=== PATIENT | female | born 1995 | race Caucasian/White ===

== ENCOUNTER → 2021-01-29 10:44 | Outpatient (CLI) | payer OTHER, SELFPAY ==
[2021-01-29 18:22] LABS: Add Manual Diff / Slide Review NO; Basophils Absolute Auto 0 /uL (0-100); Basophils Percent Auto 0.3 % (0-2); Eosinophils Absolute Auto 100 /uL (0-450); Eosinophils Percent Auto 0.8 % (2-4); Hematocrit 39.8 % (36-46); Hemoglobin 13.7 g/dL (12.0-16.0); Lymphocytes Absolute Auto 1900 /uL (1100-4500); Mean Corpuscular HGB Conc 34.5 % (30-36); Mean Corpuscular Volume 89.8 fL (80-100); Monocytes Absolute Auto 300 /uL (0-900); Monocytes Percent Auto 4.3 % (3-14); Neutrophils Absolute Auto 5400 /uL (1500-7000); Neutrophils Percent Auto 70.6 % (50-75); Platelet Count 200 X10^3/uL (150-400); Red Blood Cell Count 4.43 X10^6/uL (4.0-5.2); White Blood Cell Count 7.7 X10^3/uL (4.5-11.0)
[2021-01-29 19:30] LABS: Appearance Urine UA CLEAR; Bilirubin Urine UA NEGATIVE (NEGATIVE); Color Urine UA YELLOW; Glucose Urine UA NEGATIVE (Negative); Ketones Urine UA NEGATIVE (NEGATIVE); Leukocyte Esterase Urine UA NEGATIVE (NEGATIVE); Nitrite Urine UA NEGATIVE (Negative); Occult Blood Urine UA NEGATIVE (Negative); Protein Urine UA NEGATIVE (Negative); Specific Gravity Urine UA 1.015 (1.000-1.035); Urobilinogen Urine UA 0.2 E.U./dL (0.2); pH Urine UA 7.5 (4.5-8.0)
[2021-01-30 06:02] LABS: RPR Screen Non Reactive (Non Reactive)
[2021-01-30 09:43] LABS: Varicella IgG Antibody <135 index (Immune >165)
[2021-01-30 16:40] LABS: Hep C Virus Ab w/Reflex Quant NEGATIVE s/c (NEGATIVE); Hepatitis B Surface Antigen NEGATIVE s/c (NEGATIVE)
[2021-01-30 16:41] LABS: HIV 1 & 2 Ab/Ag 4th Gen Combo NEGATIVE (NEGATIVE); Rubella Antibody IgG 46.3 IU/mL (>15)
== END ==
PROVIDERS: Referring Provider Family Medicine; Visit Provider Family Medicine
DX: Z34.01 Encounter for supervision of normal first pregnancy, first trimester (principal)
CPT/HCPCS: 36415; 80055; 81003; 86787; 86803; 86850; 86900; 86901; 87077; 87086; 87389

== ENCOUNTER → 2021-03-28 15:56 | Outpatient (CLI) | payer OTHER, SELFPAY ==
[2021-04-01 13:16] LABS: AFP, Serum 22.2 ng/mL (.); Calc Gestational Age EDD (.); Estriol, Free 1.62 ng/mL (.); Inhibin A, Dimeric 178.01 pg/mL (.); Inhibin A, MoM 1.02 (.); Maternal Ethnicity Other (.); Maternal Weight 133 lbs (.); Number of Fetuses No (.); OSBR Risk 1 IN 10000 (.); Results Report (.); Test Results *Screen Negative* (.); hCG, MoM 1.23 (.); hCG, Serum 57958 mIU/mL (.)
== END ==
PROVIDERS: Referring Provider Family Medicine; Visit Provider Family Medicine
DX: Z34.90 Encounter for supervision of normal pregnancy, unspecified, unspecified trimester (principal); Z3A.15 15 weeks gestation of pregnancy
CPT/HCPCS: 36415; 82105; 82677; 84702; 86336

== ENCOUNTER → 2021-04-28 15:28 | Outpatient (CLI) | payer OTHER, SELFPAY ==
--- NOTE | 2021-04-28 15:29 | DI.US.S_ITS ---
PROCEDURE: US OB >= 14 WEEKS FETUS INDICATIONS: ANATOMY OUTSIDE/PRIOR DATING DATA: Last menstrual period (LMP): 11/18/2020. LMP-based estimated date of delivery (MICAELA): 08/25/2021. First dating scan (date and location): 04/28/2021. Estimated date of delivery (MICAELA) from first dating scan: 09/06/2021. TECHNIQUE: Real-time scanning was performed of the fetus, with image documentation and biometric measurements. COMPARISON: None. FINDINGS: General: A single living intrauterine gestation is present. Presentation: Breech/oblique Placenta: Placental position is posterior, without previa. Amniotic fluid index: 12.6 cm, normal range is 5-24 cm. heart rate: 152 beats per minute. Maternal cervical canal: 3.7 cm long. Normal lower limit is 2.5 cm. biometrics: Biparietal diameter: 5 cm, 21 weeks, 1 day Head circumference: 18.4 cm, 20 weeks, 6 days Abdominal circumference: 16.4 cm, 21 weeks, 3 days Femur length: 3.7 cm, 21 weeks, 4 days Estimated gestational age from initial scan: not applicable. Composite gestational age from present scan: 21 weeks, 2 days Estimated weight and percentile: 425 g, 2% Measurement variability for biometric dating: +/- 7 days from 14 weeks to 15 weeks 6 days gestation, +/- 10 days from 16 weeks to 21 weeks 6 days gestation, +/- 2 weeks from 22 weeks to 27 weeks 6 days gestation, +/- 3 weeks for 28 weeks gestation or later. weight reference: 4500 g or EFW >90/95% is considered macrosomia or large for gestational age. EFW <10% is small for gestational age. EFW 5% or less is considered intra-uterine growth restriction. Anatomic survey: Neuro: Ventricles are non-dilated at less than 10 mm. Cisterna magna is normal at 3-11 mm. Cerebellum is normal in size and morphology. Nuchal skin fold: Normal at less than 6 mm between 14-21 weeks gestational age. Face: Nose and lips, facial profile are normal. Spine: No evidence for spina bifida. Heart: 4-chambered heart is present, with normal ventricular outflow tracts. Diaphragm: Diaphragm is intact. Stomach: Left-sided stomach is present. Kidneys: No hydronephrosis. Normal is less than 5 mm in 2nd trimester, less than 7 mm in 3rd trimester. Cord: 3-vessel cord has orthotopic insertion. Bladder: Normal in size. Extremities: All 4 extremities identified. Unable to evaluate for gender due to position. IMPRESSION: 1. Single live intrauterine with in oblique/breech presentation. heart rate is 152 beats per minute. Normal amount of amniotic fluid. Estimated gestational age based on current study is 21 weeks, 2 days. Low weight at 2 %. 2. Unable to evaluate for gender due to position. Rest of the anatomic survey is within normal limits. Dictated by: Dayo Browning M.D. on 04/28/2021 at 17:32 Approved by: Dayo Browning M.D. on 04/28/2021 at 17:34
== END ==
PROVIDERS: Referring Provider Family Medicine; Visit Provider Family Medicine
DX: Z36.89 Encounter for other specified antenatal screening (principal); Z3A.21 21 weeks gestation of pregnancy
CPT/HCPCS: 76811

== ENCOUNTER → 2021-06-02 15:39 | Outpatient (CLI) | payer OTHER, SELFPAY ==
--- NOTE | 2021-06-02 15:40 | DI.US.S_ITS ---
PROCEDURE: US OB FOLLOW UP INDICATIONS: FOLLOW UP GENITALIA. LARGE FOR GESTATIONAL AGE. OUTSIDE/PRIOR DATING DATA: Last menstrual period (LMP): 11/18/2020 LMP-based estimated date of delivery (MICAELA): 08/25/2021. First dating scan (date and location): 04/28/2021. Estimated date of delivery (MICAELA) from first dating scan: 09/06/2021. The calculations are made using the ultrasound MICAELA of 09/06/2021. TECHNIQUE: Real-time scanning was performed of the fetus, with image documentation and biometric measurements. Endovaginal scanning: No COMPARISON: [facility], US, OB >= 14 WEEKS FETUS, 04/28/2021, 15:54. FINDINGS: General: A single living intrauterine gestation is present. Presentation: Vertex. Placenta: Placental position is posterior. Amniotic fluid index: 15.9 cm, normal range is 5-24 cm. Single deepest vertical pocket is not evaluated heart rate: 162 beats per minute. Maternal cervical canal: 4.2 cm long. Normal lower limit is 2.5 cm. biometrics: Biparietal diameter: 26 weeks 6 days Head circumference: 26 weeks 2 days Abdominal circumference: 25 weeks 1 day Femur length: 27 weeks 4 days Clinically estimated gestational age: 26 weeks 2 days Composite gestational age from present scan: 26 weeks 3 days Estimated weight and percentile: 909 g; 36 percentile Other: Gender appears to be female. IMPRESSION: 1. Normal interval growth. 2. Gender appears to be female. We strive to produce accurate, complete, and clear reports of imaging services. To assist us in improving patient care, this report was composed using standard report templates and voice recognition software. Therefore, it may contain abnormal punctuation, insertions and/or omissions. Occasional wrong-word or sound-alike substitutions may occur. Though we review the report and make efforts to correct it, we do recommend that the report be read carefully in proper context to recognize any text inaccuracies. Dictated by: Arnel ROQUE Interpreted: Dayo Browning MD on 06/02/2021 at 17:02 Transcribed by: SHANTE on 06/02/2021 at 17:04 Approved by: Dayo Browning M.D. on 06/02/2021 at 17:06
== END ==
PROVIDERS: Referring Provider Family Medicine; Visit Provider Family Medicine
DX: Z36.2 Encounter for other antenatal screening follow-up (principal); Z36.88 Encounter for antenatal screening for fetal macrosomia; Z3A.26 26 weeks gestation of pregnancy
CPT/HCPCS: 76816

== ENCOUNTER → 2021-07-04 15:28 | Outpatient (CLI) | payer OTHER, SELFPAY ==
[2021-07-04 16:49] LABS: Add Manual Diff / Slide Review NO; Basophils Absolute Auto 0 /uL (0-100); Basophils Percent Auto 0.3 % (0-2); Eosinophils Absolute Auto 0 /uL (0-450); Eosinophils Percent Auto 0.5 % (2-4); Hematocrit 31.1 % (36-46); Lymphocytes Absolute Auto 1200 /uL (1100-4500); Lymphocytes Percent Auto 20.2 % (25-40); Mean Corpuscular HGB Conc 35.3 % (30-36); Mean Corpuscular Hemoglobin 31.5 PG (26-34); Mean Corpuscular Volume 89.2 fL (80-100); Monocytes Absolute Auto 300 /uL (0-900); Monocytes Percent Auto 5.4 % (3-14); Neutrophils Absolute Auto 4400 /uL (1500-7000); Neutrophils Percent Auto 73.6 % (50-75); Platelet Count 158 X10^3/uL (150-400); Red Blood Cell Count 3.49 X10^6/uL (4.0-5.2); Red Cell Distribution Width 12.9 % (11.6-14.8); White Blood Cell Count 5.9 X10^3/uL (4.5-11.0)
[2021-07-04 16:59] LABS: GTT (PREG) 1 Hour PP 50gm Dose 87 mg/dL (76-139)
== END ==
PROVIDERS: Referring Provider Family Medicine; Visit Provider Family Medicine
DX: Z34.03 Encounter for supervision of normal first pregnancy, third trimester (principal); Z3A.28 28 weeks gestation of pregnancy
CPT/HCPCS: 36415; 82950; 85025

== ENCOUNTER → 2021-08-15 14:29 | Outpatient (CLI) | payer OTHER, SELFPAY ==
[2021-08-16 12:44] LABS: Strep Grp B PCR NEG for Grp B Strep
== END ==
PROVIDERS: Visit Provider Family Medicine
DX: Z36.85 Encounter for antenatal screening for Streptococcus B (principal); Z3A.36 36 weeks gestation of pregnancy
CPT/HCPCS: 87653

== ENCOUNTER 2021-09-09 06:13 | Inpatient (IN) | payer OTHER, SELFPAY ==
[2021-09-09 08:20] LABS: Add Manual Diff / Slide Review NO; Basophils Absolute Auto 100 /uL (0-100); Basophils Percent Auto 0.7 % (0-2); Eosinophils Absolute Auto 0 /uL (0-450); Eosinophils Percent Auto 0.3 % (2-4); Hematocrit 34.1 % (36-46); Hemoglobin 11.5 g/dL (12.0-16.0); Lymphocytes Absolute Auto 1800 /uL (1100-4500); Lymphocytes Percent Auto 24.7 % (25-40); Mean Corpuscular HGB Conc 33.7 % (30-36); Mean Corpuscular Hemoglobin 29.3 PG (26-34); Mean Corpuscular Volume 86.9 fL (80-100); Monocytes Absolute Auto 600 /uL (0-900); Neutrophils Absolute Auto 4900 /uL (1500-7000); Neutrophils Percent Auto 66.3 % (50-75); Platelet Count 174 X10^3/uL (150-400); Red Blood Cell Count 3.92 X10^6/uL (4.0-5.2); Red Cell Distribution Width 14.9 % (11.6-14.8); White Blood Cell Count 7.4 X10^3/uL (4.5-11.0)
--- NOTE | 2021-09-09 08:32 | P.HPOB_ITS ---
OB HPI Date/Time Date of admission: 09/09/21 Date Patient Seen: 09/09/21 Time Patient Seen: 07:35 History of Present Condition Chief complaint: OBS MICAELA Calculator Estimated Delivery Date Method Current WG Current Estimate 09/13/21 Manual 39w 3d Final MICAELA - DAVID Other Estimates 08/25/21 LMP (Certain) 42w 1d 09/13/21 Ultrasound #1 39w 3d Estimated Gestational Age (weeks): 39w3d : 1 Para: 0 Narrative: Pt is a 26yo at 39w3d who presented with LOF. Pt reports feeling leaking starting around 1:30am. Around 2:30am, she started to have more cramping. She denies any vaginal bleeding. She has been feeling her baby move regularly. The pts has been uncomplicated other than LGA on anatomy scan at 95th percentile, repeat scan 86th percentile at 26 weeks. care: good care, initiated at week # (7) and pounds weight gain (32) Dating criteria OB: based on 1st trimester US only Ultrasounds: normal 1st trimester US and normal mid trimester US (95th percentile) Obstetrical complications: none Medical complications OB: none Preadmission Labs Last OB Lab Results: Blood Type O Positive 09/09/21 08:16 09/09/21 Antibody Screen Negative 09/09/21 08:16 09/09/21 Hematocrit 34.1 % (36-46) L 09/09/21 08:16 09/09/21 Hemoglobin 11.5 g/dL (12.0-16.0) L 09/09/21 08:16 09/09/21 Hepatitis B Surface Antigen Negative s/c (NEGATIVE) 01/29/21 17:20 01/29/21 Hepatitis C Antibody Negative s/c (NEGATIVE) 01/29/21 17:20 01/29/21 Rubella Antibody 46.3 IU/mL (>15) 01/29/21 17:20 01/29/21 Varicella-Zoster IgG Antibody <135 index (Immune >165) L 01/29/21 17:20 01/29/21 Glucose 1 Hour 87 mg/dL (76-139) 07/04/21 15:34 07/04/21 Group B Streptococcus (PCR) Neg for grp b strep 08/15/21 14:29 08/15/21 -: Urine: positive (lactobacillus) Genetic Screens: Quad screen: Normal External Labs -: Urine: positive (lactobacillus) Evaluation Evaluation Baseline heart rate: 120 Variability: Moderate (11-25) monitor accelerations: Present Monitor Decelerations: Absent Contraction Frequency (minutes): 4 Status: Category l Dilation (cm): 3 Effacement (%): 80 Dilation: 3-4 cm Effacement: >/=80% station: -1 Position of cervix: posterior Consistency: soft Haynes score: 9 [facility] Medical History (Updated 05/02/21 @ 16:21 by Oliva Kilpatrick MD) Acquired deafness of left ear Surgical History (Updated 01/24/21 @ 12:20 by Enedina Alicia, RN) H/O adenoidectomy (~2003) History of placement of ear tubes (~2000) Family History (Updated 01/24/21 @ 12:26 by Enedina Alicia RN) Mother Lupus Father No problems noted. Grandmother Bladder cancer Gastric ulcer Hernia Grandfather No problems noted. Grandmother H/O Spinal surgery Grandfather Hypertension Social History marital status: number of children: 0 household members: spouse lives independently: Yes caregiver/support person: No housing: house pets and animals: Yes (2 cats, snakes. ) education level: college (Some college. 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 ) current occupational exposures/hazards: No special sharonda needs: No seatbelt use: always working smoke detector in home: Yes fire extinguisher in home: Yes carbon monox detector in home: No firearms in home: Yes firearms unloaded and locked: Yes (Unloaded, in gun case, locked. ) do you feel safe at home: Yes Smoking Status: Never smoker second hand exposure: No alcohol intake: former (Rarely when not . ) substance use type: does not use during the past year weight has: remained stable well-balanced diet: daily or most days daily servings fruits/ve-1 caffeine: Yes (1 cup daily. Used to drink a lot of coffee/soda. ) Type(s) of exercise: walking and other (hiking ) frequency: 3-4 times per week duration: 30-45 minutes/day Meds Home Medications and Allergies Home Medications Medication Instructions Recorded Confirmed Type cetirizine 10 mg tablet (Zyrtec) 10 mg PO DAILY PRN MDD 10 mg 01/24/21 09/09/21 History prenat.vits,kendell,teb-cinw-aonlc 1 tab PO DAILY 01/24/21 09/09/21 History breast pump #1 ea 07/18/21 09/09/21 Rx Allergies Allergy/AdvReac Type Severity Reaction Status Date / Time No Known Drug Allergies Allergy Verified 08/22/21 15:29 OB Exam Narrative Exam Narrative: Gen: NAD, sitting comfortably in bed, appears well CV: RRR, no murmurs Resp: clear to auscultation bilaterally Abd: soft, nontender, gravid Ext: no edema Objective Labs Result Diagrams: 09/09/21 08:16 Labs: Laboratory Results - last 24 hr 09/09/21 08:16 WBC 7.4 RBC 3.92 L Hgb 11.5 L Hct 34.1 L MCV 86.9 MCH 29.3 MCHC 33.7 RDW 14.9 H Plt Count 174 Neut % (Auto) 66.3 Lymph % (Auto) 24.7 L [place] % (Auto) 8.0 Eos % (Auto) 0.3 L Baso % (Auto) 0.7 Neut # (Auto) 4900 Lymph # (Auto) 1800 [place] # (Auto) 600 Eos # (Auto) 0 Baso # (Auto) 100 Assessment and Plan Assessment and Plan Assessment and Plan narrative: 26yo at 39w3d here with SROM at home. No complications with . GBS negative, Rh positive. - Expectant management, anticipate - FHT reassuring - GBS negative, no prophylaxis indicated - Epidural for pain control when desired - 6.5hrs since rupture, will continue to monitor for transition to active labor. If without painful contractions developing in the next couple hours, plan to start pitocin.
[2021-09-09 08:51] LABS: COVID19 -Nasal RAPID Negative (Negative)
[2021-09-09 10:51] VITALS: BP 115/71
[2021-09-09] MEDS: LACTATED RINGERS 1,000 ML 100 ML IV ×3 (11:27→21:08)
[2021-09-09] MEDS: OXYTOCIN PREMIX 30 UNIT/500 ML PLAST..BAG IV (11:30)
--- NOTE | 2021-09-09 13:25 | PM.OBPNLAB ---
Date/Time Date Patient Seen: 09/09/21 Time Patient Seen: 13:26 Pain Control Pain control: tolerating well Pelvic Exam Dilation (cm): 3.5 Effacement (%): 90 station: -1 Amniotic membrane status: Ruptured Contractions Pitocin rate (mU/min): 4 Contraction frequency (min): 4 Status status: Category l Heart Rate Baseline: 120 Monitor Accelerations: Present Monitor Decelerations: Absent Monitor Variability: Moderate Assessment and Plan Comments: 26yo at 39w3d here with SROM at home.? No complications with .? GBS negative, Rh positive. Minimal cervical change, not yet in active labor.120 - Expectant management, anticipate - FHT reassuring - GBS negative, no prophylaxis indicated - Epidural for pain control when desired - Pitocin initiated, titrate as tolerated
[2021-09-09] MEDS: fentaNYL 100 MCG/2 ML INJ 50 MCG IV (15:14)
[2021-09-09] MEDS: FENT 2MCG/ML BUPIV 0.125% EPI 200 MCG/100 ML PLAST..BAG 13.5 MCG EPIDURAL (21:08)
[2021-09-09] MEDS: ONDANSETRON 4 MG/2 ML INJ IV (22:48)
[2021-09-10] MEDS: FENT 2MCG/ML BUPIV 0.125% EPI 200 MCG/100 ML PLAST..BAG 13.5 MCG EPIDURAL (02:24)
--- NOTE | 2021-09-10 03:08 | PM.OBPRVD ---
Labor & Delivery Delivery date: 09/10/21 Intrapartal Events: None Cervical ripening method: none Induction method: none Delivery augmentation: pitocin Delivery monitor: external FHT Route of delivery: Episiotomy description: None L&D Laceration Description: Perineal - 2nd Degree Delivery repair: vicryl Estimated blood loss (mL): 400 Anesthesia Type: Epidural Complications: None Narrative: PROCEDURE: at 39w3d presented with SROM in early latent labor and was admitted to Labor and Delivery. The patient progressed through the 1st stage over 24.5 hours. Pain was controlled with an epidural. Pitocin was started due to limited progress. The patient progressed through the 2nd stage over 1 hour and delivered a viable female infant with APGARs 9/9 at 2:45 via without complications. The cord was clamped and cut after it stopped pulsating. The perineum and vagina were inspected with 2nd degree perineal laceration repaired with 2-O Vicryl. PREPROCEDURE DIAGNOSIS: Intrauterine at 39w4d GBS negative RH positive POSTPROCEDURE DIAGNOSIS: Intrauterine at 39w4d, delivered Same as preprocedure [place] Baby 1: Infant gender: Female Presentation: vertex Position: Right Occiput Anterior Placenta delivery description: Spontaneous Cord Vessel Description: 3 Vessels score (1 min): 9 score (5 min): 9 weight: 7 lb 15.551 oz Plan for aftercare: Routine care
[2021-09-10] MEDS: ACETAMINOPHEN 325 MG TABLET 650 MG PO ×3 (05:14→21:35)
[2021-09-10] MEDS: IBUPROFEN 600 MG TABLET PO ×3 (05:14→21:35)
[2021-09-10 09:44] LABS: Add Manual Diff / Slide Review NO; Basophils Absolute Auto 0 /uL (0-100); Basophils Percent Auto 0.2 % (0-2); Eosinophils Absolute Auto 0 /uL (0-450); Eosinophils Percent Auto 0.4 % (2-4); Hemoglobin 10.7 g/dL (12.0-16.0); Lymphocytes Absolute Auto 1700 /uL (1100-4500); Lymphocytes Percent Auto 15.6 % (25-40); Mean Corpuscular HGB Conc 32.5 % (30-36); Mean Corpuscular Hemoglobin 28.6 PG (26-34); Mean Corpuscular Volume 87.8 fL (80-100); Monocytes Absolute Auto 700 /uL (0-900); Monocytes Percent Auto 6.2 % (3-14); Neutrophils Absolute Auto 8600 /uL (1500-7000); Neutrophils Percent Auto 77.6 % (50-75); Platelet Count 144 X10^3/uL (150-400); Red Blood Cell Count 3.76 X10^6/uL (4.0-5.2); White Blood Cell Count 11.1 X10^3/uL (4.5-11.0)
[2021-09-10] MEDS: LACTATED RINGERS 500 ML 1000 ML IV (09:57)
[2021-09-10] MEDS: PRENATAL VIT,CALC/IRON/FOLIC 1 TABLET 1 TAB PO (10:01)
[2021-09-10] MEDS: DOCUSATE 100 MG CAPSULE PO (10:01)
[2021-09-11] MEDS: IBUPROFEN 600 MG TABLET PO ×2 (03:33→10:08)
[2021-09-11] MEDS: ACETAMINOPHEN 325 MG TABLET 650 MG PO ×2 (03:33→10:09)
[2021-09-11 05:40] LABS: Add Manual Diff / Slide Review NO; Basophils Absolute Auto 0 /uL (0-100); Basophils Percent Auto 0.3 % (0-2); Eosinophils Absolute Auto 100 /uL (0-450); Eosinophils Percent Auto 0.8 % (2-4); Hematocrit 30.8 % (36-46); Hemoglobin 10.2 g/dL (12.0-16.0); Lymphocytes Absolute Auto 2300 /uL (1100-4500); Lymphocytes Percent Auto 24.1 % (25-40); Mean Corpuscular HGB Conc 33.1 % (30-36); Mean Corpuscular Hemoglobin 29.2 PG (26-34); Mean Corpuscular Volume 88.2 fL (80-100); Monocytes Absolute Auto 600 /uL (0-900); Monocytes Percent Auto 6.3 % (3-14); Neutrophils Absolute Auto 6600 /uL (1500-7000); Neutrophils Percent Auto 68.5 % (50-75); Platelet Count 155 X10^3/uL (150-400); Red Blood Cell Count 3.49 X10^6/uL (4.0-5.2); Red Cell Distribution Width 15.4 % (11.6-14.8); White Blood Cell Count 9.7 X10^3/uL (4.5-11.0)
[2021-09-11] MEDS: PRENATAL VIT,CALC/IRON/FOLIC 1 TABLET 1 TAB PO (10:10)
[2021-09-11] MEDS: DOCUSATE 100 MG CAPSULE PO (10:10)
--- NOTE | 2021-09-11 10:50 | PM.OBDS.1 ---
Discharge Providers Provider Date of admission: 09/09/21 06:13 Discharge Date: 09/11/21 Consults: 09/11/21 03:06 Consult to Nuclear Operator Routine Comment: Discharge provider: Oliva Kilpatrick MD Summary Hospital Course Date Patient Seen: 09/11/21 Time Patient Seen: 10:25 Diagnoses: 39w4d gestation GBS negative Rh positive Hospital Course: The pt presented in active labor with SROM at home. She received an epidural for pain control. Pitocin was used to augment her labor. She progressed to complete and had an of a viable baby girl on 09/10/21 without complications. A 2nd degree perineal laceration was then repaired. There were no complications . At the time of discharge she was voiding, ambulating, and passing flatus without difficulty. Her lochia was decreasing appropriately. She was with good latch. Her pain was well controlled. She will f/u in 6 weeks for check. Peripartum Data Delivery Method: Natural Vaginal Laceration Description: Perineal - 2nd Degree Episiotomy description: None Procedures: Spontaneous vaginal delivery complications: none 1: Gender: Female Disposition of : home Discharge Diagnosis (1) Spontaneous vaginal delivery: Status: Acute Time Spent with Patient Time attestation: Total time spent providing and/or coordinating discharge services: Objective Labs Result Diagrams: 09/11/21 05:25 Labs: Laboratory Results - last 24 hr 09/11/21 05:25 WBC 9.7 RBC 3.49 L Hgb 10.2 L Hct 30.8 L MCV 88.2 MCH 29.2 MCHC 33.1 RDW 15.4 H Plt Count 155 Neut % (Auto) 68.5 Lymph % (Auto) 24.1 L [place] % (Auto) 6.3 Eos % (Auto) 0.8 L Baso % (Auto) 0.3 Neut # (Auto) 6600 Lymph # (Auto) 2300 [place] # (Auto) 600 Eos # (Auto) 100 Baso # (Auto) 0 Exam Narrative Exam Narrative: Gen: NAD, sitting comfortably in bed, appears well CV: RRR, no murmurs Resp: clear to auscultation bilaterally Abd: soft, appropriately tender, fundus firm and below the umbilicus, nondistended Ext: no edema Discharge Plan Discharge Plan Patient Disposition: Home Discharge orders & Medications Prescriptions: New docusate sodium 100 mg Capsule 100 mg PO DAILY Qty: 30 0RF ibuprofen 600 mg Tablet 600 mg PO Q6HR PRN (Reason: Pain, Mild (1-3)) Qty: 30 0RF acetaminophen 325 mg Tablet 650 mg PO Q6HR PRN (Reason: Pain, Mild (1-3)) Qty: 30 0RF Continued (DME) breast pump Device See Rx Instructions .ROUTE .MEDSUPPLY Qty: 1 0RF Rx Instructions: As directed prenat.vits,kendell,bdr-syvq-vlltm Tablet 1 tab PO DAILY 0RF cetirizine [Zyrtec] 10 mg tablet 10 mg PO DAILY MDD 10 mg PRN (Reason: Allergic Symptoms) 0RF Follow up/Referrals: Oliva Kilpatrick MD [Physician] - 6 Weeks (Six week follow-up appointment will be scheduled tomorrow.) Diet/Activity/Treatments Diet: Diet as Tolerated and Regular Skin/Wound/Dressing Care Report to your healthcare provider any signs of infection, such as:: chills, fever, increased pain and unusual drainage Visit Report/Discharge Packet Instructions: DI for Labor and Delivery, Vaginal Stand Alone Forms: Discharge: Care Visit Report Forms: Patient Portal/API, Stroke Signs & Symptoms Discharges patient from system. Discharge Date/Time: 09/11/21 13:30
[2021-09-11 11:19] VITALS: BP 105/67; PULSE 73; RESP 14; TEMP 37
== END 2021-09-11 13:30 | disposition home or self-care (01) | DRG 807 ==
PROVIDERS: Admitting Provider Family Medicine; Referring Provider Family Medicine; Visit Provider Family Medicine
DX: O42.12 Full-term premature rupture of membranes, onset of labor more than 24 hours following rupture (principal); Z37.0 Single live birth; Z3A.39 39 weeks gestation of pregnancy; O70.1 Second degree perineal laceration during delivery; Z20.822 Contact with and (suspected) exposure to COVID-19
CPT/HCPCS: 01967; 36415; 59050; 59400; 84112; 85025; 86850; 86900; 86901; 87635; C9803; G0379; J2405; J2590; J3010

== ENCOUNTER → 2021-12-07 13:14 | Outpatient (CLI) | payer OTHER, SELFPAY ==
[2021-12-07 15:41] LABS: COVID19 -Nasal RAPID POSITIVE (Negative)
== END ==
PROVIDERS: Visit Provider Nurse Practitioner Family
DX: U07.1 COVID-19 (principal)
CPT/HCPCS: 87635

== ENCOUNTER → 2022-12-10 15:40 | Outpatient (CLI) | payer OTHER, SELFPAY ==
[2022-12-10 16:18] LABS: Add Manual Diff / Slide Review NO; Basophils Absolute Auto 0 /uL (0-100); Basophils Percent Auto 0.2 % (0-2); Eosinophils Absolute Auto 0 /uL (0-450); Eosinophils Percent Auto 0.2 % (2-4); Hematocrit 39.2 % (36-46); Hemoglobin 13.4 g/dL (12.0-16.0); Lymphocytes Absolute Auto 1500 /uL (1100-4500); Lymphocytes Percent Auto 18.5 % (25-40); Mean Corpuscular HGB Conc 34.3 % (30-36); Mean Corpuscular Hemoglobin 30.7 PG (26-34); Mean Corpuscular Volume 89.6 fL (80-100); Monocytes Absolute Auto 400 /uL (0-900); Monocytes Percent Auto 4.3 % (3-14); Neutrophils Absolute Auto 6400 /uL (1500-7000); Neutrophils Percent Auto 76.8 % (50-75); Platelet Count 182 X10^3/uL (150-400); Red Blood Cell Count 4.38 X10^6/uL (4.0-5.2); Red Cell Distribution Width 12.8 % (11.6-14.8); White Blood Cell Count 8.4 X10^3/uL (4.5-11.0)
[2022-12-10 17:34] LABS: Appearance Urine UA CLEAR; Bilirubin Urine UA NEGATIVE (NEGATIVE); Color Urine UA YELLOW; Glucose Urine UA NEGATIVE (Negative); Ketones Urine UA NEGATIVE (NEGATIVE); Leukocyte Esterase Urine UA NEGATIVE (NEGATIVE); Nitrite Urine UA NEGATIVE (Negative); Occult Blood Urine UA NEGATIVE (Negative); Protein Urine UA NEGATIVE (Negative); Specific Gravity Urine UA 1.025 (1.000-1.035); Urobilinogen Urine UA 0.2 E.U./dL (0.2)
[2022-12-10 18:06] LABS: Hepatitis B Surface Antigen NEGATIVE s/c (NEGATIVE); Rubella Antibody IgG 43.1 IU/mL (>15)
[2022-12-10 18:24] LABS: HIV 1 & 2 Ab/Ag 4th Gen Combo NEGATIVE (NEGATIVE); Hep C Virus Ab w/Reflex Quant NEGATIVE s/c (NEGATIVE)
[2022-12-11 09:15] LABS: RPR Screen Non Reactive (Non Reactive); Varicella IgG Antibody <135 index (Immune >165)
== END ==
PROVIDERS: Referring Provider Family Medicine; Visit Provider Family Medicine
DX: Z34.81 Encounter for supervision of other normal pregnancy, first trimester (principal)
CPT/HCPCS: 36415; 80055; 81003; 86787; 86803; 86850; 86900; 86901; 87086; 87389

== ENCOUNTER → 2023-02-17 16:39 | Outpatient (CLI) | payer OTHER, SELFPAY ==
[2023-02-19 20:17] LABS: AFP, Serum 52.9 ng/mL (.); Estriol, Free 1.97 ng/mL (.); Inhibin A, Dimeric 122.61 pg/mL (.); Inhibin A, MoM 0.73 (.); Maternal Ethnicity Caucasian (.); Maternal Weight 136 lbs (.); Number of Fetuses No (.); OSBR Risk 1 IN 10000 (.); Results Report (.); Test Results *Screen Negative* (.); hCG, MoM 1.32 (.); hCG, Serum 39071 mIU/mL (.)
== END ==
PROVIDERS: Referring Provider Family Medicine; Visit Provider Family Medicine
DX: Z34.81 Encounter for supervision of other normal pregnancy, first trimester (principal)
CPT/HCPCS: 36415; 82105; 82677; 84702; 86336

== ENCOUNTER → 2023-02-22 14:21 | Outpatient (CLI) | payer OTHER, SELFPAY ==
--- NOTE | 2023-02-22 14:22 | DI.US.S_ITS ---
PROCEDURE: US OB >= 14 WEEKS FETUS INDICATIONS: Anatomy scan OUTSIDE/PRIOR DATING DATA: Last menstrual period (LMP): 10/01/2022. LMP-based estimated date of delivery (MICAELA): 07/08/2023 First dating scan (date and location): Not applicable. Estimated date of delivery (MICAELA) from first dating scan: Not applicable. The calculations are made using the clinical MICAELA of 05/17/2024. TECHNIQUE: Real-time scanning was performed of the fetus, with image documentation and biometric measurements. Endovaginal scanning: None COMPARISON: [facility], OB >= 14 WEEKS FETUS, 04/28/2021, 15:54. FINDINGS: General: A single living intrauterine gestation is present. Presentation: Breech. Placenta: Placental position is anterior , without previa. Normal placental lakes noted Amniotic fluid index: 9.5 cm, normal range is 5-24 cm. Single deepest vertical pocket is 3.3 cm. heart rate: 144 beats per minute. Maternal cervical canal: 3.6 cm long. Normal lower limit is 2.5 cm. biometrics: Biparietal diameter: 4.3 cm, 19 week 0 day Head circumference: 17.4 cm, 19 week 6 day Abdominal circumference: 15.0 cm, 20 week 2 day Femur length: 3.5 cm, 21 week 0 day Clinically estimated gestational age: 20 week 4 day Composite gestational age from present scan: 20 week 0 day Estimated weight and percentile: 358 g, 41st percentile Anatomic survey: Neuro: Ventricles are non-dilated at less than 10 mm. Cisterna magna is normal at 3-11 mm. Cerebellum is normal in size and morphology. Nuchal skin fold: Normal at less than 6 mm between 14-21 weeks gestational age. Face: Nose and lips, facial profile are normal. Spine: No evidence for spina bifida. Heart: 4-chambered heart is present, with normal ventricular outflow tracts. Diaphragm: Diaphragm is intact. Stomach: Left-sided stomach is present. Kidneys: No hydronephrosis. Normal is less than 5 mm in 2nd trimester, less than 7 mm in 3rd trimester. Cord: 3-vessel cord has orthotopic insertion. Bladder: Normal in size. Extremities: All 4 extremities identified. IMPRESSION: Single live intrauterine consistent with 20 week 0 day gestation by current ultrasound Approved by: Kevin Mcgee M.D. on 02/22/2023 at 17:43
== END ==
PROVIDERS: Referring Provider Family Medicine; Visit Provider Family Medicine
DX: Z3A.20 20 weeks gestation of pregnancy; Z36.89 Encounter for other specified antenatal screening
CPT/HCPCS: 76811

== ENCOUNTER → 2023-04-26 16:01 | Outpatient (CLI) | payer OTHER, SELFPAY ==
[2023-04-26 17:56] LABS: Add Manual Diff / Slide Review NO; Basophils Absolute Auto 0 /uL (0-100); Basophils Percent Auto 0.4 % (0-2); Eosinophils Absolute Auto 0 /uL (0-450); Eosinophils Percent Auto 0.5 % (2-4); Hematocrit 33.8 % (36-46); Hemoglobin 11.8 g/dL (12.0-16.0); Lymphocytes Absolute Auto 1400 /uL (1100-4500); Lymphocytes Percent Auto 19.6 % (25-40); Mean Corpuscular HGB Conc 34.9 % (30-36); Mean Corpuscular Hemoglobin 31.7 PG (26-34); Mean Corpuscular Volume 90.7 fL (80-100); Monocytes Absolute Auto 300 /uL (0-900); Monocytes Percent Auto 4.3 % (3-14); Neutrophils Absolute Auto 5400 /uL (1500-7000); Neutrophils Percent Auto 75.2 % (50-75); Platelet Count 161 X10^3/uL (150-400); Red Blood Cell Count 3.72 X10^6/uL (4.0-5.2); Red Cell Distribution Width 13.1 % (11.6-14.8); White Blood Cell Count 7.2 X10^3/uL (4.5-11.0)
[2023-04-26 18:17] LABS: GTT (PREG) 1 Hour PP 50gm Dose 111 mg/dL (76-139)
== END ==
PROVIDERS: Referring Provider Family Medicine; Visit Provider Family Medicine
DX: Z34.81 Encounter for supervision of other normal pregnancy, first trimester (principal)
CPT/HCPCS: 36415; 82950; 85025; 86850

== ENCOUNTER → 2023-06-11 14:34 | Outpatient (CLI) | payer OTHER, SELFPAY ==
[2023-06-12 18:19] LABS: Strep Grp B PCR NEG for Grp B Strep
== END ==
PROVIDERS: Visit Provider Family Medicine
DX: Z34.81 Encounter for supervision of other normal pregnancy, first trimester (principal)
CPT/HCPCS: 87653

== ENCOUNTER 2023-07-08 04:06 | Observation (INO) | payer OTHER, SELFPAY ==
[2023-07-08] MEDS: MORPHINE 10 MG/ML INJ 8 MG IM (05:29)
--- NOTE | 2023-07-09 09:21 | PM.OBTRLD ---
Visit Information Visit Information Date of evaluation: 07/08/23 Primary OB Provider: Oliva Kilpatrick Comments/Additional reasons for admission: 28yo at 40w0d here with contractions. Contractions increasing in frequency all night. No vaginal bleeding, LOF. [facility] Medical History (Updated 07/09/23 @ 09:23 by Oliva Kilpatrick MD) Scoliosis Spontaneous vaginal delivery LGA (large for gestational age) fetus Acquired deafness of left ear Surgical History (Updated 01/24/21 @ 12:20 by Enedina Alicia, RN) H/O adenoidectomy (~2003) History of placement of ear tubes (~2000) Family History (Updated 12/01/22 @ 08:42 by Charity Kendall, KRISTIAN) Mother Lupus Rheumatoid arthritis S/P cholecystectomy Father No problems noted. 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 ) substance use type: does not use during the past year weight has: other (back to pre-baby wt (dtr is ~15 months old)) well-balanced diet: daily or most days daily servings fruits/ve-4 caffeine: Yes (1-2 cups coffee/day) Type(s) of exercise: walking and other (active w/ toddler) frequency: 3-4 times per week duration: 30-45 minutes/day Evaluation Evaluation Baseline heart rate: 120 Variability: Moderate (11-25) monitor accelerations: Present Monitor Decelerations: Absent Contraction Frequency (minutes): 3 Cervical dilation (cm): 2 Cervical effacement (%): 75 station: -3 Diagnosis, Plan/Disposition Final Diagnosis (1) Prolonged latent phase of labor: Status: Acute Plan/Disposition Plan: 28yo at 40w gestation here with contractions. Very minimal cervical change. Pt feels safe for d/c home. Morphine given for pain relief. Return precautions discussed. Pt has OB appt tomorrow. OB Disposition: home
== END 2023-07-08 06:15 | disposition home or self-care (01) ==
PROVIDERS: Admitting Provider Family Medicine; PCP Family Medicine; Referring Provider Family Medicine; Visit Provider Family Medicine
DX: O63.0 Prolonged first stage (of labor) (principal); Z3A.40 40 weeks gestation of pregnancy
CPT/HCPCS: 59025; 96372; G0378; G0379; J2270

== ENCOUNTER 2023-07-09 10:17 | Inpatient (IN) | payer OTHER, SELFPAY ==
--- NOTE | 2023-07-09 10:31 | P.HPOB_ITS ---
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 Pt reports contractions overnight, increasing in frequency significantly this morning. No LOF or vaginal bleeding. She is feeling her baby move regularly. No complications with her . care: good care, initiated at week # (9) and pounds weight gain (34) Dating criteria OB: based on 1st trimester US only Ultrasounds: normal 1st trimester US and normal mid trimester US Obstetrical complications: none Medical complications OB: none Preadmission Labs Last OB Lab Results: Blood Type O Positive 12/10/22 15:43 Antibody Screen Negative 04/26/23 16:34 Hematocrit 33.8 % (36-46) L 04/26/23 16:34 Hemoglobin 11.8 g/dL (12.0-16.0) L 04/26/23 16:34 Hepatitis B Surface Antigen Negative s/c (NEGATIVE) 12/10/22 15 :43 Hepatitis C Antibody Negative s/c (NEGATIVE) 12/10/22 15:43 Rubella Antibody 43.1 IU/mL (>15) 12/10/22 15:43 Varicella-Zoster IgG Antibody <135 index (Immune >165) L 15:43 Glucose 1 Hour 111 mg/dL (76-139) 04/26/23 16:34 Group B Streptococcus (PCR) Neg for grp b strep 06/11/23 14:34 -: Urine: positive (Lactobacillus) -: PAP smear: Normal Genetic Screens: Quad screen: Normal External Labs -: Urine: positive (Lactobacillus) Prior (ies) Past Pregnancies Del. Date GA/Weeks Labor Lgth Wt Sex Route Outcome Anesthesia Place Delv Breastfeed Preg Comp Name 09/10/21 39.4 25 7 lb 15.5 oz Female vaginal live - full term IH 14 m onths none Erika Evaluation Evaluation Baseline heart rate: 120 Variability: Moderate (11-25) monitor accelerations: Present Monitor Decelerations: Absent Contraction Frequency (minutes): 4 Uterine Contraction Intensity: Strong/Firm Status: Category l Dilation (cm): 5 Position of cervix: anterior Consistency: soft [facility] Medical History (Updated 07/09/23 @ 09:23 by Oliva Kilpatrick MD) Scoliosis Spontaneous vaginal delivery LGA (large for gestational age) fetus Acquired deafness of left ear Surgical History (Updated 01/24/21 @ 12:20 by Enedina Alicia RN) H/O adenoidectomy (~2003) History of placement of ear tubes (~2000) Family History (Updated 12/01/22 @ 08:42 by Charity Kendall RN) Mother Lupus Rheumatoid arthritis S/P cholecystectomy Father No problems noted. Grandmother Bladder cancer Gastric ulcer Hernia S/P cholecystectomy Grandfather Stroke Grandmother H/O Spinal surgery Grandfather Hypertension Heart attack Family/Other Breast cancer Grandmother Breast cancer Family/Other Multiple sclerosis Social History marital status: number of children: 1 household members: spouse and children lives independently: Yes caregiver/support person: Yes housing: apartment pets and animals: Yes (2 cats, snakes (pt doesn't handle them), automated litter box) education level: college occupational status: employed current occupational exposures/hazards: No special sharonda needs: No travel history: over 6 months ago seatbelt use: always helmet use: Yes water heater temp set < 120 deg: Yes working smoke detector in home: Yes fire extinguisher in home: Yes carbon monox detector in home: Yes firearms in home: No do you feel safe at home: Yes Smoking Status: Never smoker second hand exposure: No alcohol intake: former substance use type: does not use during the past year weight has: other well-balanced diet: daily or most days daily servings fruits/ve-4 caffeine: Yes (1-2 cups coffee/day) Type(s) of exercise: walking and other frequency: 3-4 times per week duration: 30-45 minutes/day Meds Home Medications and Allergies Home Medications Medication Instructions Recorded Confirmed Type cetirizine 10 mg tablet (Zyrtec) 10 mg PO DAILY PRN Allergic 01/24/21 07/08/23 History Symptoms prenat.vits,kendell,[id number]-[id number] 1 tab PO DAILY 01/24/21 07/08/23 History breast pump #1 ea 07/18/21 06/23/23 Rx Allergies Allergy/AdvReac Type Severity Reaction Status Date / Time No Known Drug Allergies Allergy Verified 06/23/23 13:36 OB Exam Resp Effort & Inspection: normal respiratory effort Auscultation: clear to auscultation bilaterally Cardio Rate: regular rate Rhythm: regular rhythm Heart Sounds: S1 normal, S2 normal and no murmurs GI Inspection: non-distended Palpation: Yes soft and No tender Presentation: vertex Assessment and Plan Assessment and Plan Assessment and Plan narrative: 28yo at 40w1d here in active labor. GBS negative, Rh positive. No complications with . - Expectant management, anticipate - FHT reassuring - GBS negative, no prophylaxis indicated - Epidural for pain control when desired
--- NOTE | 2023-07-09 10:52 | PM.AN.REGBLK ---
Regional Block Pre-procedure Procedure: Continuous Lumbar Epidural for L&D Attending OB provider: Oliva Kilpatrick PMH/ROS narrative: term labor, no complications, no significant PMH. Scoliosis noted in record. Last epidural in 2021 placed without difficulty per note. ASA Class: II Labs: last plt 161 in 03/2023. No RF's for coagulopathy. Medications: PNV Allergies: Allergies Allergy/AdvReac Type Severity Reaction Status Date / Time No Known Drug Allergies Allergy Verified 06/23/23 13:36 Procedure Insertion date: 07/09/23 Insertion time: 11:20 Prep/Local: betadine x3 and 1% lidocaine Interspace: L3-4, L4-5 Patient position: sitting Needle: 18 gauge Hustead (CSE: 27g Pencan through Hustead. Clear CSF. 1mL 0.25% PF bupiv.) Loss of resistance with: saline AMANDA at (cm): 5 Catheter placed at SKIN (cm): 10 Catheter in SPACE (cm): 5 Insertion: No CSF, No Blood, No Paresthesia with insertion, No Paresthesia with injection and No Test dose reaction Initial Medications TEST DOSE time: 11:20 TEST DOSE: 1.5% lidocaine with epinephrine 1:200k (mL): 3 BOLUS DOSE time: 11:25 BOLUS DOSE (mL): 4 BOLUS DOSE med: other (infusate) Infusion INFUSION: 0.125% bupivacaine and with fentanyl 2 mcg/mL Initial rate (mL/hr): 8 Subsequent interventions: First attempt, L3-4, CSE, catheter to 5cm, +heme with aspiration, to 4cm, +heme. Catheter was withdrawn. Replaced L4-5 without difficulty. Negative aspiration, negative test dose. . Post-procedure Anesthesia date START: 07/09/23 Anesthesia time START: 11:00 Anesthesia date END: 07/09/23 Anesthesia time END: 15:22 Post-procedure Anesthesia Assessment: Yes CV function: HR/BP stable, Yes Resp function: RR/sat/airway adequate, Yes Post-op hydration adequate, Yes Pain control adequate, Yes Nausea & vomiting absent, Yes Temperature > 36 C, Yes Mental status appropriate and No Anesthesia complications
[2023-07-09] MEDS: FENT 2MCG/ML BUPIV 0.125% EPI 200 MCG/100 ML PLAST..BAG 6 MCG EPIDURAL (11:20)
[2023-07-09] MEDS: OXYTOCIN PREMIX 30 UNIT/500 ML PLAST..BAG 200 UNIT IV (14:35)
[2023-07-09] MEDS: LACTATED RINGERS 1,000 ML 100 ML IV (14:37)
[2023-07-09 14:42] LABS: Add Manual Diff / Slide Review NO; Basophils Absolute Auto 100 /uL (0-100); Basophils Percent Auto 1.3 % (0-2); Eosinophils Absolute Auto 100 /uL (0-450); Eosinophils Percent Auto 0.9 % (2-4); Hematocrit 36.9 % (36-46); Hemoglobin 12.1 g/dL (12.0-16.0); Lymphocytes Absolute Auto 1700 /uL (1100-4500); Lymphocytes Percent Auto 23.8 % (25-40); Mean Corpuscular HGB Conc 32.9 % (30-36); Mean Corpuscular Hemoglobin 29.1 PG (26-34); Mean Corpuscular Volume 88.3 fL (80-100); Monocytes Absolute Auto 400 /uL (0-900); Monocytes Percent Auto 5.7 % (3-14); Neutrophils Absolute Auto 4800 /uL (1500-7000); Neutrophils Percent Auto 68.3 % (50-75); Platelet Count 165 X10^3/uL (150-400); Red Blood Cell Count 4.17 X10^6/uL (4.0-5.2); Red Cell Distribution Width 13.7 % (11.6-14.8)
--- NOTE | 2023-07-09 15:23 | P.PCNOB_ITS ---
Labor & Delivery Delivery date: 07/09/23 Cervical ripening method: none Induction method: none Delivery monitor: external FHT and external uterine Route of delivery: Episiotomy description: None L&D Laceration Description: None Quantitative Blood Loss: 100 Anesthesia Type: Epidural Complications: None Narrative: PROCEDURE: at 40w1d presented in active labor and was admitted to Labor and Delivery. The patient progressed through the 1st stage over 7 hours. SROM occured at 14:17 with clear fluid. Pain was controlled with an epidural. The patient progressed through the 2nd stage over 6 minutes and delivered a viable female with APGARs 9/9 at 15:08 via without complications. The cord was cut and clamped after it stopped pulsating. The placenta delivered with gentle cord traction, and appeared complete. The perineum and vagina were inspected with no lacerations. Needle and sponge counts were correct.? The vagina was inspected and no items were left in situ. Alex was doing well with Rosie, her and Rolando, , at beds [facility]. PREPROCEDURE DIAGNOSIS: Intrauterine at 40w1d GBS negative RH positive POSTPROCEDURE DIAGNOSIS: Intrauterine at 40w1d, delivered Same as preprocedure Clyman Baby 1: gender: Female Presentation: vertex Position: Right Occiput Anterior Placenta delivery description: Spontaneous Cord Vessel Description: 3 Vessels score (1 min): 9 score (5 min): 9 weight: 7 lb 9.695 oz Plan for aftercare: Routine care
[2023-07-09 17:25] VITALS: BP 102/68
[2023-07-09] MEDS: ACETAMINOPHEN 325 MG TABLET 650 MG PO (19:03)
[2023-07-09] MEDS: IBUPROFEN 600 MG TABLET PO (19:04)
[2023-07-10] MEDS: IBUPROFEN 600 MG TABLET PO ×2 (01:13→06:57)
[2023-07-10] MEDS: LANOLIN OINT 7 GM 1 APPLIC TOP (01:13)
[2023-07-10] MEDS: ACETAMINOPHEN 325 MG TABLET 650 MG PO ×2 (01:13→06:56)
[2023-07-10] MEDS: DERMOPLAST SPRAY 20% 60 ML 1 SPRAY TOP (01:13)
--- NOTE | 2023-07-10 11:38 | P.DS_ITS ---
Discharge Providers Provider Date of admission: 07/09/23 10:17 Discharge Date: 07/10/23 Primary care physician: Oliva Kilpatrick MD Consults: 07/09/23 10:51 Consult to Anesthesiology Urgent Comment: Consulting Provider: Anesthesiologist Reason for consultation: Epidural 07/10/23 15:28 Consult to Loss Prevention Officer Routine Comment: Discharge provider: Oliva Kilpatrick MD Summary Hospital Course Date Patient Seen: 07/10/23 Diagnoses: 40w1d gestation GBS negative RH positive Hospital Course: The pt presented in active labor. She had an epidural for pain control. She had SROM with clear fluid. She progressed to complete and had an of a viable baby girl on 07/09/2023. There were no lacerations. , there were no complications. At the time of discharge she was voiding, ambulating, and passing flatus without difficulty. Her lochia was decreasing appropriately. Her pain was well controlled. She was with good latch. She will f/u in 6 weeks for check. She is undecided regarding contraception. Peripartum Data Delivery Method: Natural Vaginal Laceration Description: None Episiotomy description: None Procedures: Spontaneous vaginal delivery complications: none Keo 1: Gender: Female Disposition of : home Status at Discharge Cognitive/behavioral status at discharge: oriented Functional status at discharge: independent ambulation Overall status at discharge: patient is progressing back to baseline Time Spent with Patient Time attestation: Total time spent providing and/or coordinating discharge services: Objective Labs 07/09/23 10:51 Labs: Laboratory Results - last 24 hr 07/09/23 10:51 WBC 7.0 RBC 4.17 Hgb 12.1 Hct 36.9 MCV 88.3 MCH 29.1 MCHC 32.9 RDW 13.7 Plt Count 165 Neut % (Auto) 68.3 Lymph % (Auto) 23.8 L [place] % (Auto) 5.7 Eos % (Auto) 0.9 L Baso % (Auto) 1.3 Neut # (Auto) 4800 Lymph # (Auto) 1700 [place] # (Auto) 400 Eos # (Auto) 100 Baso # (Auto) 100 Blood Type O Positive Antibody Screen Negative Exam Narrative Exam Narrative: Gen: NAD, sitting comfortably in bed, appears well CV: RRR, no murmurs Resp: clear to auscultation bilaterally Abd: soft, appropriately tender, fundus firm and below the umbilicus, nondistended Ext: no edema Discharge Plan Discharge Plan Patient Disposition: Home Discharge orders & Medications Prescriptions: New acetaminophen 325 mg Tablet 650 mg PO Q6HR PRN (Reason: Pain, Mild (1-3)) Qty: 30 0RF docusate sodium 100 mg Capsule 100 mg PO DAILY Qty: 30 0RF ibuprofen 600 mg Tablet 600 mg PO Q6HR PRN (Reason: Pain, Mild (1-3)) Qty: 30 0RF Continued (DME) breast pump Device See Rx Instructions .ROUTE .MEDSUPPLY Qty: 1 0RF Rx Instructions: As directed prenat.vits,kendell,[id number] Tablet 1 tab PO DAILY cetirizine [Zyrtec] 10 mg tablet 10 mg PO DAILY MDD 10 mg PRN (Reason: Allergic Symptoms) Follow up/Referrals: Oliva Kilpatrick MD [Primary Care Provider] - (Please call to make a six week follow up appointment with Dr. Kilpatrick.) Diet/Activity/Treatments Diet: Diet as Tolerated and Regular Skin/Wound/Dressing Care Report to your healthcare provider any signs of infection, such as:: chills, fever, increased pain and unusual drainage Visit Report/Discharge Packet Instructions: DI for Labor and Delivery, Vaginal Stand Alone Forms: Discharge: Care, Patient Portal/API, Stroke Signs & Symptoms Discharge Data Primary Care Provider: Oliva Kilpatrick
[2023-07-10 14:56] VITALS: BP 116/64; PULSE 65; RESP 17; TEMP 37.1
== END 2023-07-10 15:50 | disposition home or self-care (01) | DRG 807 ==
PROVIDERS: Admitting Provider Family Medicine; PCP Family Medicine; Referring Provider Family Medicine; Visit Provider Family Medicine
DX: O42.02 Full-term premature rupture of membranes, onset of labor within 24 hours of rupture (principal); Z37.0 Single live birth; Z3A.40 40 weeks gestation of pregnancy
CPT/HCPCS: 36415; 59050; 59400; 85025; 86850; 86900; 86901; G0379; J2590

== ENCOUNTER → 2024-09-13 15:08 | Outpatient (CLI) | payer OTHER, SELFPAY ==
[2024-09-13 16:15] LABS: Add Manual Diff / Slide Review NO; Basophils Absolute Auto 0 /uL (0-100); Basophils Percent Auto 0.3 % (0-2); Eosinophils Absolute Auto 0 /uL (0-450); Eosinophils Percent Auto 0.5 % (2-4); Hematocrit 40.7 % (36-46); Lymphocytes Absolute Auto 1700 /uL (1100-4500); Lymphocytes Percent Auto 22.6 % (25-40); Mean Corpuscular HGB Conc 34.3 % (30-36); Mean Corpuscular Hemoglobin 31.1 PG (26-34); Mean Corpuscular Volume 90.5 fL (80-100); Monocytes Absolute Auto 300 /uL (0-900); Monocytes Percent Auto 4.3 % (3-14); Neutrophils Absolute Auto 5400 /uL (1500-7000); Neutrophils Percent Auto 72.3 % (50-75); Platelet Count 191 X10^3/uL (150-400); Red Cell Distribution Width 13.5 % (11.6-14.8); White Blood Cell Count 7.4 X10^3/uL (4.5-11.0)
[2024-09-13 16:20] LABS: Appearance Urine UA CLEAR; Bilirubin Urine UA NEGATIVE (NEGATIVE); Color Urine UA YELLOW; Glucose Urine UA NEGATIVE (Negative); Ketones Urine UA NEGATIVE (NEGATIVE); Leukocyte Esterase Urine UA NEGATIVE (NEGATIVE); Nitrite Urine UA NEGATIVE (Negative); Occult Blood Urine UA NEGATIVE (Negative); Protein Urine UA NEGATIVE (Negative); Specific Gravity Urine UA 1.025 (1.000-1.035); Urobilinogen Urine UA 0.2 E.U./dL (0.2)
[2024-09-14 14:49] LABS: Hepatitis B Surface Antigen NEGATIVE s/c (NEGATIVE)
[2024-09-14 15:09] LABS: HIV 1 & 2 Ab/Ag 4th Gen Combo NEGATIVE (NEGATIVE); Hep C Virus Ab w/Reflex Quant NEGATIVE s/c (NEGATIVE)
[2024-09-15 04:36] LABS: RPR Screen Non Reactive (Non Reactive)
[2024-09-15 10:21] LABS: Varicella IgG Antibody Non Reactive (Non Reactive)
== END ==
PROVIDERS: PCP Family Medicine; Referring Provider Family Medicine; Visit Provider Family Medicine
DX: Z34.80 Encounter for supervision of other normal pregnancy, unspecified trimester (principal)
CPT/HCPCS: 36415; 80055; 81003; 86787; 86803; 86850; 86900; 86901; 87086; 87389

== ENCOUNTER → 2024-11-09 16:02 | Outpatient (CLI) | payer OTHER, SELFPAY ==
[2024-11-14 19:36] LABS: AFP, Serum 64.8 ng/mL (.); Calc Gestational Age EDD (.); Estriol, Free 2.11 ng/mL (.); Inhibin A, Dimeric 112.93 pg/mL (.); Inhibin A, MoM 0.61 (.); Maternal Ethnicity Caucasian (.); Maternal Weight 136 lbs (.); Number of Fetuses No (.); OSBR Risk 1 IN 7366 (.); Results Report (.); Test Results *Screen Negative* (.); hCG, MoM 2.38 (.); hCG, Serum 67945 mIU/mL (.)
== END ==
PROVIDERS: PCP Family Medicine; Referring Provider Family Medicine; Visit Provider Family Medicine
DX: Z34.80 Encounter for supervision of other normal pregnancy, unspecified trimester (principal)
CPT/HCPCS: 36415; 82105; 82677; 84702; 86336

== ENCOUNTER → 2024-11-30 07:58 | Outpatient (CLI) | payer OTHER, SELFPAY ==
--- NOTE | 2024-11-30 07:58 | DI.US.S_ITS ---
PROCEDURE: US OB >= 14 WEEKS FETUS INDICATIONS: anatomy OUTSIDE/PRIOR DATING DATA: Working MICAELA: 04/02/2025 TECHNIQUE: Real-time scanning was performed of the fetus, with image documentation and biometric measurements. Endovaginal scanning: Not performed COMPARISON: [facility], , OB >= 14 WEEKS FETUS, 02/22/2023, 14:37. FINDINGS: General: A single living intrauterine gestation is present. Presentation: Cephalic. Placenta: Placental position is anterior , without previa. Venous like present. Amniotic fluid index: 10.6 cm, normal range is 5-24 cm. Single deepest vertical pocket is 4.3 cm. heart rate: 163 beats per minute. Maternal cervical canal: 3.0 cm long. Normal lower limit is 2.5 cm. biometrics: Biparietal diameter: 5.3 centimeter, 22 weeks 1 day Head circumference: 20.4 centimeter, 22 weeks 4 days Abdominal circumference: 18 centimeters, 22 weeks 6 days Femur length: 3.8 centimeters, 22 weeks 1 day Clinically estimated gestational age: 22 weeks 3 days Composite gestational age from present scan: 22 weeks 4 days Estimated weight and percentile: 509 grams, 47 percentile Anatomic survey: Neuro: Ventricles are non-dilated at less than 10 mm. Cisterna magna is normal at 3-11 mm. Cerebellum is normal in size and morphology. Nuchal skin fold: Normal at less than 6 mm between 14-21 weeks gestational age. Face: Nose and lips, facial profile are normal. Spine: No evidence for spina bifida. Heart: 4-chambered heart is present, with normal ventricular outflow tracts. Diaphragm: Diaphragm is intact. Stomach: Left-sided stomach is present. Kidneys: No hydronephrosis. Normal is less than 5 mm in 2nd trimester, less than 7 mm in 3rd trimester. Cord: 3-vessel cord has orthotopic insertion. Bladder: Normal in size. Extremities: All 4 extremities identified. IMPRESSION: Single living intrauterine at 22 weeks 3 days, MICAELA of 04/02/2025. Estimated weight of 509 grams, 47 percentile. Normal anatomy survey. We strive to produce accurate, complete, and clear reports of imaging services. To assist us in improving patient care, this report was composed using standard report templates and voice recognition software. Therefore, it may contain abnormal punctuation, insertions and/or omissions. Occasional wrong-word or sound-alike substitutions may occur. Though we review the report and make efforts to correct it, we do recommend that the report be read carefully in proper context to recognize any text inaccuracies. Dictated by: Arsenio De Jesus M.D. on 11/30/2024 at 11:48 Approved by: Arsenio De Jesus M.D. on 11/30/2024 at 12:03
== END ==
PROVIDERS: PCP Family Medicine; Referring Provider Family Medicine; Visit Provider Family Medicine
DX: Z34.82 Encounter for supervision of other normal pregnancy, second trimester (principal); Z3A.22 22 weeks gestation of pregnancy
CPT/HCPCS: 76811

== ENCOUNTER → 2025-01-11 09:44 | Outpatient (CLI) | payer OTHER, SELFPAY ==
[2025-01-11 11:59] LABS: Add Manual Diff / Slide Review NO; Hematocrit 38.0 % (36-46); Hemoglobin 13.1 g/dL (12.0-16.0); Lymphocytes Absolute Auto 1100 /uL (1100-4500); Mean Corpuscular HGB Conc 34.5 % (30-36); Mean Corpuscular Hemoglobin 31.2 PG (26-34); Mean Corpuscular Volume 90.5 fL (80-100); Platelet Count 163 X10^3/uL (150-400)
[2025-01-11 12:19] LABS: GTT (PREG) 1 Hour PP 50gm Dose 79 mg/dL (76-139)
== END ==
PROVIDERS: PCP Family Medicine; Referring Provider Family Medicine; Visit Provider Family Medicine
DX: Z34.80 Encounter for supervision of other normal pregnancy, unspecified trimester (principal)
CPT/HCPCS: 36415; 82950; 85025

== ENCOUNTER → 2025-03-07 10:27 | Outpatient (CLI) | payer OTHER, SELFPAY ==
[2025-03-08 10:24] LABS: Strep Grp B PCR NEG for Grp B Strep
== END ==
PROVIDERS: PCP Family Medicine; Visit Provider Family Medicine
DX: Z34.80 Encounter for supervision of other normal pregnancy, unspecified trimester (principal)
CPT/HCPCS: 87653

== ENCOUNTER 2025-03-21 11:00 | Outpatient (CLI) | payer OTHER, SELFPAY ==
--- NOTE | 2025-03-21 11:33 | PM.OBTRLD ---
Visit Information Visit Information Date of evaluation: 03/21/25 Primary OB Provider: Oliva Kilpatrick Reason for Evaluation: Yes non-stress test non-stress test reason: other (low FHT in clinic) [facility] Medical History Prolonged latent phase of labor Scoliosis Spontaneous vaginal delivery LGA (large for gestational age) fetus Surgical History H/O adenoidectomy (~2003) History of placement of ear tubes (~2000) Family History Mother Lupus Rheumatoid arthritis S/P cholecystectomy Father No problems noted. 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 ) do you feel safe at home: Yes second hand exposure: No alcohol intake: former (very rarely when not ) substance use type: does not use during the past year weight has: other (back to normal non- weight) well-balanced diet: about half the time daily servings fruits/ve-4 caffeine: Yes (~8-10 oz cold brew/day) Type(s) of exercise: walking and other (active with young children, pilates) frequency: 3-4 times per week duration: 30-45 minutes/day Evaluation Evaluation Baseline heart rate: 120 Variability: Moderate (6-25) monitor accelerations: Present Monitor Decelerations: Absent Category of Tracing: Reactive Diagnosis, Plan/Disposition Plan/Disposition Plan: 29yo at 38w2d here due to FHT in the 110s in clinic. NST reactive here after eating some food. OB Disposition: home
== END 2025-03-21 11:40 | disposition home or self-care (01) ==
LOC: LABOR 11:07 → OB 13:47
PROVIDERS: PCP Family Medicine; Referring Provider Family Medicine; Visit Provider Family Medicine
DX: O36.8330 Maternal care for abnormalities of the fetal heart rate or rhythm, third trimester, not applicable or unspecified (principal); Z3A.38 38 weeks gestation of pregnancy
CPT/HCPCS: 59025; G0378; G0379

== ENCOUNTER 2025-03-28 06:32 | Observation (INO) | payer OTHER, SELFPAY ==
--- NOTE | 2025-03-28 08:31 | P.TNLD_ITS ---
Visit Information Visit Information Date of evaluation: 03/28/25 Primary OB Provider: Oliva Kilpatrick Comments/Additional reasons for admission: 29yo at 39w2d here for contractions. Pt reports contractions starting early this morning. No vaginal bleeding or LOF. She is feeling her baby move regularly. [facility] Medical History (Updated 03/28/25 @ 23:00 by Oliva Kilpatrick MD) Scoliosis Spontaneous vaginal delivery LGA (large for gestational age) fetus Surgical History H/O adenoidectomy (~2003) History of placement of ear tubes (~2000) Family History Mother Lupus Rheumatoid arthritis S/P cholecystectomy Father No problems noted. 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 ) do you feel safe at home: Yes Smoking Status: Never smoker second hand exposure: No alcohol intake: former (very rarely when not ) substance use type: does not use during the past year weight has: other (back to normal non- weight) well-balanced diet: about half the time daily servings fruits/ve-4 caffeine: Yes (~8-10 oz cold brew/day) Type(s) of exercise: walking and other (active with young children, pilates) frequency: 3-4 times per week duration: 30-45 minutes/day Evaluation Evaluation Baseline heart rate: 130 Variability: Moderate (6-25) monitor accelerations: Present Monitor Decelerations: Absent Contraction Frequency (minutes): 5 Category of Tracing: Reactive Cervical dilation (cm): 3 Cervical effacement (%): 80 station: -3 Diagnosis, Plan/Disposition Final Diagnosis (1) Prolonged latent phase of labor: Status: Acute Plan/Disposition Plan: 29yo at 39w2d here for contractions. No significant cervical exchange specialist time. Stable for d/c home. Discussed ongoing labor precautions. Pt with appt later today. OB Disposition: home
== END 2025-03-28 09:15 | disposition home or self-care (01) ==
LOC: LABOR 06:34
PROVIDERS: Admitting Provider Family Medicine; PCP Family Medicine; Referring Provider Family Medicine; Visit Provider Family Medicine
DX: O63.0 Prolonged first stage (of labor) (principal); Z3A.39 39 weeks gestation of pregnancy
CPT/HCPCS: 59025; G0378; G0379

== ENCOUNTER 2025-03-28 12:36 | Inpatient (IN) | payer OTHER, SELFPAY ==
[2025-03-28 14:21] VITALS: BP 108/61
[2025-03-28] MEDS: LACTATED RINGERS 1,000 ML 100 ML IV ×2 (15:00→18:24)
[2025-03-28 15:27] LABS: Add Manual Diff / Slide Review NO; Hematocrit 34.8 % (36-46); Hemoglobin 11.5 g/dL (12.0-16.0); Lymphocytes Absolute Auto 2100 /uL (1100-4500); Mean Corpuscular HGB Conc 32.9 % (30-36); Mean Corpuscular Hemoglobin 28.2 PG (26-34); Mean Corpuscular Volume 85.8 fL (80-100); Platelet Count 212 X10^3/uL (150-400)
--- NOTE | 2025-03-28 16:16 | PM.OBHP.IH.1 ---
OB HPI Date/Time Date of admission: 03/28/25 Date Patient Seen: 03/28/25 History of Present Condition Chief complaint: NST MICAELA Calculator Estimated Delivery Date Method Current WG Current Estimate 04/02/25 Ultrasound #1 39w 2d Other Estimates 05/05/25 LMP (Uncertain) 34w 4d 04/16/25 Manual 37w 2d based on neg and pos UPT dates, estimated Estimated Gestational Age (weeks): 39w2d : 3 Para: 2 Narrative: 29yo at 39w2d here with regular contractions. Contractions have been worsening throughout the day. No vaginal bleeding or LOF. She is feeling her baby move regularly. The pts has been uncomplicated. care: good care, initiated at week # (9) and pounds weight gain (38) Dating criteria OB: based on 1st trimester US only Ultrasounds: normal 1st trimester US and normal mid trimester US Obstetrical complications: none Medical complications OB: none Preadmission Labs Last OB Lab Results: Blood Type O Positive Today, 13:20 Antibody Screen Negative Today, 13:20 Hct, (36-46) 34.8 % L Today, 15:20 Hgb, (12.0-16.0) 11.5 g/dL L Today, 15:20 Hep Bs Antigen, (NEGATIVE) Negative s/c 09/13/24, 15:14 Hepatitis C Antibody, (NEGATIVE) Negative s/c 09/13/24, 15:14 Rubella Antibody, (>15) 42.0 IU/mL 09/13/24, 15:14 VZV IgG Antibody, (Non Reactive) Non reactive 09/13/24, 15:14 Glucose 1 Hr 50 gm, (76-139) 79 mg/dL 01/11/25, 11:16 Group B Strep (PCR) Neg for grp b strep 03/07/25, 10:27 -: Urine: negative Genetic Screens: Quad screen: Normal External Labs -: Urine: negative Prior (ies) Past Pregnancies Del. Date GA/Weeks Labor Lgth Wt Sex Route Outcome Anesthesia Place Delv Breastfeed Preg Comp Name 09/10/21 39.4 25 7 lb 15.5 oz Female vaginal live - full term IH 14 months Erika 07/09/23 40.1 7 7 lb 11 oz Female vaginal live - full term epidural IH Still going at 13 months Rosie Evaluation Evaluation Baseline heart rate: 125 Variability: Moderate (6-25) monitor accelerations: Present Monitor Decelerations: Absent Contraction Frequency (minutes): 4 Uterine Contraction Intensity: Strong/Firm Status: Category l Dilation (cm): 4 Effacement (%): 80 station: -2 [facility] Medical History Prolonged latent phase of labor Scoliosis Spontaneous vaginal delivery LGA (large for gestational age) fetus Surgical History H/O adenoidectomy (~2003) History of placement of ear tubes (~2000) Family History Mother Lupus Rheumatoid arthritis S/P cholecystectomy Father No problems noted. 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 ) do you feel safe at home: Yes Smoking Status: Never smoker second hand exposure: No alcohol intake: former (very rarely when not ) substance use type: does not use during the past year weight has: other (back to normal non- weight) well-balanced diet: about half the time daily servings fruits/ve-4 caffeine: Yes (~8-10 oz cold brew/day) Type(s) of exercise: walking and other (active with young children, pilates) frequency: 3-4 times per week duration: 30-45 minutes/day Meds Home Medications and Allergies Home Medications ?Medication ?Instructions ?Recorded ?Confirmed ?Type breast pump #1 ea 07/18/21 03/28/25 Rx [id number] mcg-om3 35 mg-dha 25 tab PO 08/16/24 03/28/25 History mg-epa 5 mg-fish oil chewable tablet Allergies Allergy/AdvReac Type Severity Reaction Status Date / Time No Known Drug Allergies Allergy Verified 03/28/25 15:20 OB Exam Resp Effort & Inspection: normal respiratory effort Auscultation: clear to auscultation bilaterally Cardio Rate: regular rate Rhythm: regular rhythm Heart Sounds: S1 normal, S2 normal and no murmurs GI Inspection: non-distended Palpation: Yes soft and No tender Presentation: vertex Objective Labs 03/28/25 15:20 Labs: Laboratory Results - last 24 hr 03/28/25 03/28/25 13:20 15:20 WBC 11.3 H RBC 4.06 Hgb 11.5 L Hct 34.8 L MCV 85.8 MCH 28.2 MCHC 32.9 RDW 14.2 Plt Count 212 Neut % (Auto) 74.4 Lymph % (Auto) 18.5 L Stanton % (Auto) 6.3 Eos % (Auto) 0.6 L Baso % (Auto) 0.2 Neut # (Auto) 8400 H Lymph # (Auto) 2100 Stanton # (Auto) 700 Eos # (Auto) 100 Baso # (Auto) 0 Blood Type O Positive Antibody Screen Negative Assessment and Plan Assessment and Plan Assessment and Plan narrative: 29yo at 39w2d here in active labor. GBS negative, Rh positive. No complications with . - Expectant management, anticipate - FHT reassuring - GBS negative, no prophylaxis needed - Epidural for pain control when desired Time-Based Coding :: [TOTAL MINUTES] spent with patient and on the chart (including review of chart, obtaining history, exam, reviewing outside data, placing orders, documenting exam and treatment plan, and counseling patient) on [DATE].
--- NOTE | 2025-03-28 16:50 | P.PCN_ITS ---
Regional Block Pre-procedure Procedure: Continuous Lumbar Epidural for L&D Attending OB provider: Oliva Kilpatrick PMH/ROS narrative: 29yo at 39+ EGA, no medical or obstetric complications. Scoliosis. ASA Class: II Labs: Hct 34.8 % (36-46) L 03/28/25 15:20 Plt Count 212 X10^3/uL (150-400) 03/28/25 15:20 Medications: Current Medications Generic Name Dose Route Start Last Admin Trade Name Freq PRN Reason Stop Dose Admin Calcium Carbonate 1,000 mg 03/28/25 13:57 Calcium Carbonate 500 Mg Tab PO Q2HR PRN Dyspepsia Carboprost Tromethamine 250 mcg 03/28/25 13:57 Carboprost 250 Mcg/Ml Ampul IM Q90M PRN Bleeding Diphenhydramine HCl 25 mg 03/28/25 16:48 Diphenhydramine 50 Mg/Ml Vial IV Q10M PRN Pruritis Fentanyl 50 mcg 03/28/25 13:57 Fentanyl 100 Mcg/2 Ml Inj IV Q1H PRN Pain, Moderate (4-6) Oxytocin/Lactated Ringer's 30 unit in 500 mls @ 200 mls/hr 03/28/25 13:57 Oxytocin Premix IV CONT PRN Bleeding Protocol Tranexamic Acid 1,000 mg/ 100 mls @ 600 mls/hr 03/28/25 13:57 Sodium Chloride IV NOW PRN Bleeding Lactated Ringer's 1,000 mls @ 100 mls/hr 03/28/25 14:00 Lactated Ringers IV 03/28/25 23:59 CONT LAVERN FENT 2MCG/ML BUPIV 0.125% EPI 200 mcg in 100 mls @ 8 mls/hr 03/28/25 17:00 Fentanyl/Bupiv/Ns 2mcg/Ml - 0.125% EPIDURAL CONT LAVERN Lidocaine HCl 20 ml 03/28/25 13:57 Lidocaine 1% 20 Ml INJ INTRA-OP PRN Post Delivery Methylergonovine Maleate 0.2 mg 03/28/25 13:57 Methylergonovine 0.2 Mg Tablet PO Q6HR PRN Heavy Bleeding Methylergonovine Maleate 0.2 mg 03/28/25 13:57 Methylergonovine 0.2 Mg/Ml Vial IM NOW PRN Bleeding Mineral Oil 30 ml 03/28/25 13:57 Mineral Oil 30 Ml Udc TOP PRN PRN Version Misoprostol 800 mcg 03/28/25 13:57 Misoprostol 200 Mcg Tablet WV NOW PRN Bleeding Misoprostol 400 mcg 03/28/25 13:57 Misoprostol 200 Mcg Tablet SL NOW PRN Bleeding Nalbuphine HCl 2.5 mg 03/28/25 16:48 Nalbuphine 20 Mg/Ml Ampul IV Q10M PRN Pruritis Naloxone HCl 0.2 mg 03/28/25 13:57 Naloxone 0.4 Mg/Ml Vial IV Q2MIN PRN Opiate Reversal Ondansetron HCl 4 mg 03/28/25 13:57 Ondansetron 4 Mg/2 Ml Inj IV Q4HR PRN Nausea And Vomiting Oxytocin 10 unit 03/28/25 13:57 Oxytocin 10 Unit/Ml Vial IM NOW PRN Bleeding Allergies: Allergies Allergy/AdvReac Type Severity Reaction Status Date / Time No Known Drug Allergies Allergy Verified 03/28/25 15:20 Procedure Insertion date: 03/28/25 Insertion time: 15:46 Prep/Local: betadine x3 and 1% lidocaine Interspace: L34 Patient position: sitting Needle: 18 gauge [employer] (CSE: 27g Pencan through Hustead, clear CSF, 1mL 0.25% MPF bupiv) Loss of resistance with: saline AMANDA at (cm): 4 Catheter placed at SKIN (cm): 10 Catheter in SPACE (cm): 6 Insertion: No CSF, No Blood, No Paresthesia with insertion, No Paresthesia with injection and No Test dose reaction Initial Medications TEST DOSE time: 15:51 TEST DOSE: 1.5% lidocaine with epinephrine 1:200k (mL): 3 BOLUS DOSE time: 16:02 BOLUS DOSE (mL): 4 BOLUS DOSE med: other (infusate) Infusion INFUSION: 0.125% bupivacaine and with fentanyl 2 mcg/mL Initial rate (mL/hr): 8 Subsequent interventions: vasovagal after insertion. Quickly resolved, no medical intervention. PCEA@8+4 Post-procedure Anesthesia date START: 03/28/25 Anesthesia time START: 16:02 Anesthesia date END: 03/29/25 Anesthesia time END: 01:42 Post-procedure Anesthesia Assessment: Yes CV function: HR/BP stable, Yes Resp function: RR/sat/airway adequate, Yes Post-op hydration adequate, Yes Pain control adequate, Yes Nausea & vomiting absent, Yes Temperature > 36 C, Yes Mental status appropriate and No Anesthesia complications
--- NOTE | 2025-03-28 18:22 | PM.OBPNLAB ---
Date/Time Date Patient Seen: 03/28/25 Time Patient Seen: 18:22 Pain Control Pain control: epidural Pelvic Exam Dilation (cm): 6 Effacement (%): 80 station: -2 Contractions Monitor mode: External Contraction frequency (min): 7 Contraction intensity: Strong/Firm Status status: Category l Heart Rate Baseline: 120 Monitor Accelerations: Present Monitor Decelerations: Absent Monitor Variability: Moderate Assessment and Plan Comments: 29yo at 39w2d here in active labor. GBS negative, Rh positive. Due to significant spacing of contractions after epidural, AROM performed with lightly bloody fluid present. - Expectant management, anticipate - FHT reassuring - Epidural in place and working well
[2025-03-28] MEDS: FENT 2MCG/ML BUPIV 0.125% EPI 200 MCG/100 ML PLAST..BAG 8 MCG EPIDURAL ×2 (18:26→23:17)
--- NOTE | 2025-03-29 02:29 | PM.OBPRVD ---
Labor & Delivery Delivery date: 03/29/25 Delivery Time: 01:32 Intrapartal Events: None Cervical ripening method: none Induction method: none Delivery augmentation: rupture of membranes Delivery monitor: external FHT and external uterine Route of delivery: Episiotomy description: None L&D Laceration Description: None Quantitative Blood Loss: 25 Anesthesia Type: Epidural Complications: None Narrative: PROCEDURE: at 39w2d presented in active labor and was admitted to Labor and Delivery. The patient progressed through the 1st stage over 20 hours. ROM occured at 18:14 with clear fluid. Pain was controlled with an epidural. The patient progressed through the 2nd stage over 1 hours and delivered a viable male infant with APGARs 9/9 at 1:32 via without complications. The cord was cut and clamped after it stopped pulsating. The placenta delivered with gentle cord traction, and appeared complete. The perineum and vagina were inspected with no lacerations. Needle and sponge counts were correct.? The vagina was inspected and no items were left in situ. Dayanna was doing well with Jesus, her and her , Rolando, at bedside. PREPROCEDURE DIAGNOSIS: Intrauterine at 39w3d GBS negative RH positive POSTPROCEDURE DIAGNOSIS: Intrauterine at 39w3d, delivered Same as preprocedure Baby 1: Infant gender: Male Presentation: vertex Position: Right Occiput Anterior Placenta delivery description: Spontaneous Cord Vessel Description: 3 Vessels score (1 min): 9 score (5 min): 9 weight: 7 lb 14.104 oz Plan for aftercare: Routine care
[2025-03-29] MEDS: DERMOPLAST SPRAY 20% 60 ML 1 SPRAY TOP (04:00)
[2025-03-29] MEDS: IBUPROFEN 600 MG TABLET PO ×4 (04:02→23:40)
[2025-03-29] MEDS: LANOLIN OINT 7 GM 1 APPLIC TOP (04:02)
[2025-03-29] MEDS: ACETAMINOPHEN 325 MG TABLET 650 MG PO ×4 (04:03→23:39)
[2025-03-29] MEDS: PRENATAL VIT,CALC/IRON/FOLIC 1 TABLET 1 TAB PO (11:02)
[2025-03-29 17:25] VITALS: TEMP 36.6
[2025-03-29 17:26] VITALS: TEMP 36.4
--- NOTE | 2025-03-29 19:03 | PM.OBPN.1 ---
Subjective - OB Subjective Interval history: The pt is doing well. She is voiding, passing flatus, and ambulating without difficulty. Her lochia is decreasing appropriately. She has no concerns today. Exam Vital Signs (past 8 hours): - 03/29/25 17:25 03/29/25 17:26 Temperature 97.8 F 97.6 F Narrative Exam Narrative: Gen: NAD, sitting comfortably in bed, appears well CV: RRR, no murmurs Resp: clear to auscultation bilaterally Abd: soft, appropriately tender, fundus firm and below the umbilicus, nondistended Ext: no edema Objective Labs 03/28/25 15:20 Assessment & Plan Plan Comments: Pt is a 29yo PPD#1 s/p without complications. Pt doing well. - Normal care - support Time-Based Coding :: [TOTAL MINUTES] spent with patient and on the chart (including review of chart, obtaining history, exam, reviewing outside data, placing orders, documenting exam and treatment plan, and counseling patient) on [DATE].
[2025-03-30] MEDS: IBUPROFEN 600 MG TABLET PO ×2 (05:40→13:31)
[2025-03-30] MEDS: ACETAMINOPHEN 325 MG TABLET 650 MG PO ×2 (05:41→13:37)
--- NOTE | 2025-03-30 08:48 | PM.OBDS.1 ---
Discharge Providers Provider Date of admission: 03/28/25 12:36 Discharge Date: 03/30/25 Primary care physician: Oliva Kilpatrick MD Consults: 03/29/25 03:09 Consult to Packaging Line Attendant Routine Comment: Discharge provider: Oliva Kilpatrick MD Summary Hospital Course Date Patient Seen: 03/30/25 Diagnoses: Intrauterine at 39w3d GBS negative RH positive Hospital Course: The pt was admitted in active labor. She had an epidural for pain control. AROM was performed with clear fluid present. She progressed to complete dilation and had an uncomplicated of a viable baby boy. There were no lacerations. , there were no complications. At the time of discharge she was voiding, ambulating, and passing flatus without difficulty. Her lochia was decreasing appropriately. Her pain was well controlled. She was with good latch. She will f/u in 6 weeks for check. Peripartum Data Infant Delivery Method: Natural Vaginal Laceration Description: None Episiotomy description: None Procedures: Spontaneous vaginal delivery complications: none 1: Gender: Male Disposition of : home Status at Discharge Cognitive/behavioral status at discharge: oriented Functional status at discharge: independent ambulation Overall status at discharge: patient is progressing back to baseline Time Spent with Patient Time attestation: Total time spent providing and/or coordinating discharge services: Objective Labs 03/28/25 15:20 Exam Narrative Exam Narrative: Gen: NAD, sitting comfortably in bed, appears well CV: RRR, no murmurs Resp: clear to auscultation bilaterally Abd: soft, appropriately tender, fundus firm and below the umbilicus, nondistended Ext: no edema Discharge Plan Discharge Plan Patient Disposition: Home Discharge orders & Medications Prescriptions: New acetaminophen 325 mg Tablet 650 mg PO Q6H PRN (Reason: Pain, Mild (1-3)) Qty: 60 0RF ibuprofen 600 mg Tablet 600 mg PO Q6H Qty: 60 0RF Continued [id number] oil 400 mcg-35 mg -25 mg-5 mg tablet,chewable PO No Action (DME) breast pump Device See Rx Instructions .ROUTE .MEDSUPPLY Qty: 1 0RF Rx Instructions: As directed Follow up/Referrals: Oliva Kilpatrick MD [Primary Care Provider, Family Practice] - 05/09/25 11:00 am Referral Note: Please Check in at 10:45am on May 09 for your six week appointment. Visit Report/Discharge Packet Instructions: DI for Hemorrhage, DI for Depression Stand Alone Forms: Discharge: Care, Patient Portal/API, Stroke Signs & Symptoms Discharge Data Primary Care Provider: Oliva Kilpatrick Discharges patient from system. Discharge Date/Time: 03/30/25 14:00
[2025-03-30] MEDS: PRENATAL VIT,CALC/IRON/FOLIC 1 TABLET 1 TAB PO (13:31)
[2025-03-30 14:24] VITALS: BP 108/61; TEMP 36.4
== END 2025-03-30 14:00 | disposition home or self-care (01) | DRG 807 ==
PROVIDERS: Admitting Provider Family Medicine; PCP Family Medicine; Referring Provider Family Medicine; Visit Provider Family Medicine
DX: O80 Encounter for full-term uncomplicated delivery (principal); Z37.0 Single live birth; Z3A.39 39 weeks gestation of pregnancy; Z67.40 Type O blood, Rh positive
CPT/HCPCS: 36415; 59025; 59050; 85025; 86850; 86900; 86901; G0378; G0379